=== PATIENT | female | born 1995 | race Caucasian/White ===

== ENCOUNTER 2017-11-02 17:31 | Emergency (ER) | payer BC, OTHER ==
--- NOTE | 2017-11-02 17:51 | EDPHY ---
H & P Stated Complaint: right middle finger lac from broken lightbulb Source: Patient Exam Limitations: No limitations - Personal History LMP (Females 10-55): 22-28 Days Ago Current Tetanus/Diphtheria Vaccine: Unsure Current Tetanus Diphtheria and Acellular Pertussis (TDAP): Unsure - Medical/Surgical History Hx Asthma: No Hx Chronic Respiratory Disease: No Hx Diabetes: No Hx Cardiac Disease: No Hx Renal Disease: No Hx Cirrhosis: No Hx Alcoholism: No Hx HIV/AIDS: No Hx Splenectomy or Spleen Trauma: No Other PMH: none - Family History Significant Family History: No pertinent family hx - Social History Smoking Status: Never smoked Alcohol Use: Sober Drug Use: None Time Seen by Provider: 11/02/17 17:43 HPI/ROS: CHIEF COMPLAINT: Laceration HISTORY OF PRESENT ILLNESS: The patient is a 22-year-old female who comes to the emergency department complaining of a laceration to her right middle finger. She states that she was reaching above the refrigerator and actually cut her finger on a broken light bulb. This happened just prior to arrival. She denies other injuries. She has normal range of motion and sensation. Severity: Moderate Modifying factors: None REVIEW OF SYSTEMS: Constitutional: denies: chills, fever, recent illness, recent injury EENTM: denies: blurred vision, double vision, nose congestion Respiratory: denies: cough, shortness of breath Cardiac: denies: chest pain, irregular heart rate, lightheadedness, palpitations Gastrointestinal/Abdominal: denies: abdominal pain, diarrhea, nausea, vomiting, blood streaked stools Genitourinary: denies: dysuria, frequency, hematuria, pain Musculoskeletal: denies: joint pain, muscle pain Skin: See HPI Neurological: denies: headache, numbness, paresthesia, tingling, dizziness, weakness Hematologic/Lymphatic: denies: blood clots, easy bleeding, easy bruising Immunologic/allergic: denies: HIV/AIDS, transplant 10 systems reviewed and negative except as noted EXAM: GENERAL: Well-appearing, well-nourished and in no acute distress. HEAD: Atraumatic, normocephalic. EYES: Pupils equal round and reactive to light, extraocular movements intact, sclera anicteric, conjunctiva are normal. ENT: TMs normal, nares patent, oropharynx clear without exudates. Moist mucous membranes. NECK: Normal range of motion, supple without lymphadenopathy or JVD. LUNGS: Breath sounds clear to auscultation bilaterally and equal. No wheezes rales or rhonchi. HEART: Regular rate and rhythm without murmurs, rubs or gallops. ABDOMEN: Soft, nontender, normoactive bowel sounds. No guarding, no rebound. No masses appreciated. BACK: No CVA tenderness, no spinal tenderness, step-offs or deformities EXTREMITIES: Normal range of motion, no pitting or edema. No clubbing or cyanosis. NEUROLOGICAL: Cranial nerves II through XII grossly intact. Normal speech, normal gait. 5/5 strength, normal movement in all extremities, normal sensation , normal reflexes PSYCH: Normal mood, normal affect. SKIN: See diagram (Micah Tillman) Constitutional: Initial Vital Signs Temperature (C) 36.7 C 11/02/17 17:33 Heart Rate 76 11/02/17 17:33 Respiratory Rate 18 11/02/17 17:33 Blood Pressure 148/93 H 11/02/17 17:33 O2 Sat (%) 99 11/02/17 17:33 O2 Delivery Mode Room Air Allergies/Adverse Reactions: No Known Allergies Allergy (Unverified 11/02/17 17:32) Home Medications: Medication Instructions Recorded Control 11/02/17 ED Images - Extremities Hands Back Left/Right: 1 - 3 cm linear laceration, about 3 mm state. No visible tendon or nerve injury. No visible joint involvement. Normal range of motion and sensation distally. Medical Decision Making Procedures: I was asked by Dr. Micah Tillman to repair finger laceration. Laceration repair. Verbal consent was obtained from the patient. The 5 cm laceration on the right middle finger was anesthetized by Dr. Tillman using with 1% lidocaine and bicarb The wound was irrigated with saline, draped and explored to its base with a gloved finger. There were no deep structures involved. No tendon injury was identified. The wound was repaired with 5 0 Ethilon, 10 sutures. The wound repair was complex. The procedure was performed by myself. (Lisbet Nobles) ED Course/Re-evaluation: Patient tolerated the repair well. She has normal function and her finger. Discussed suture care and follow-up. (Micah Tillman) Differential Diagnosis: Partial list of the Differential diagnosis considered include but were not limited to; skin laceration, tendon injury, nerve injury and although unlikely based on the history and physical exam, I also considered open joint, fracture, non accidental trauma. I discussed these differential diagnoses and the plan with the patient as well as the usual and expected course. The patient understands that the diagnosis is provisional and that in medicine we are not always correct and that further workup is often warranted. Usual and customary warnings were given. All of the patient's questions were answered. The patient was instructed to return to the emergency department should the symptoms at all worsen or return, otherwise to followup with the physician as we discussed. (Micah Tillman) - Data Points Medications Given: Discontinued Medications Ibuprofen (Motrin) 600 mg PO EDNOW ONE Stop: 11/02/17 18:42 Last Admin: 11/02/17 18:44 Dose: 600 mg Departure - Departure Disposition: Home, Routine, Self-Care Clinical Impression: Finger laceration Qualifiers: Encounter type: initial encounter Finger: middle finger Damage to nail status: without damage Foreign body presence: without foreign body Laterality: right Qualified Code(s): S61.212A - Laceration without foreign body of right middle finger without damage to nail, initial encounter Condition: Good Instructions: Care For Your Stitches (ED), Laceration (ED), Acute Wounds (ED) Additional Instructions: Wound Care Follow-Up: Removal of sutures in 10 days. Suture removal is complimentary in uncomplicated cases. Infection or abnormal findings would require reevaluation by the MD. In that case, you may be billed. Keep wound dry, clean and protected. Return if you notice any signs or symptoms of infection such as redness, swelling, increased pain, fever, purulent drainage. Ibuprofen 600 mg every 8 hr as needed for pain. Referrals: ROSANA Cruz,. [Clinic] - As per Instructions
[2017-11-02] MEDS ORDERED: IBUPROFEN 600 MG TAB PO ONE ×2 (18:41→18:42)
[2017-11-12 14:14] VITALS: BP 122/92
== END 2017-11-02 18:46 | disposition home or self-care (01) ==
PROC: 0HQFXZZ Repair Right Hand Skin, External Approach (ICD-10-PCS; principal; 2017-11-02)
DX: S61.212A Laceration without foreign body of right middle finger without damage to nail, initial encounter (principal); W25.XXXA Contact with sharp glass, initial encounter; Y92.9 Unspecified place or not applicable

== ENCOUNTER 2018-04-03 20:25 | Emergency (ER) | payer OTHER ==
[2018-04-03 20:33] VITALS: BP 136/90
[2018-04-03] MEDS ORDERED: ONDANSETRON DISINTEGRATING 4 MG TAB PO ONE (20:46)
--- NOTE | 2018-04-03 20:48 | EDPHY ---
H & P Stated Complaint: GONZALES,FATIGUE,DIZZY/SNOWBOARDING HIT HEAD +LOC Time Seen by Provider: 04/03/18 20:42 HPI/ROS: CHIEF COMPLAINT: Concussion HISTORY OF PRESENT ILLNESS: Patient is a 22-year-old female who comes to the emergency department with her boyfriend complaining of concussion symptoms. She was snowboarding at 230 this afternoon when she fell backwards and hit the back of her head. She was wearing a helmet. She does not think she lost consciousness but does not remember the event or just prior or just afterwards. Boyfriend states that he was ahead of her and she came skiing down the hill with hardly any delay that he appreciated. She has had a mild headache and nausea ever since. No vomiting. No seizure-like activity. She has been asking repetitive questions. She feels slightly confused. No neck pain. Denies other injuries. She is able to ambulate without difficulty. Severity: Moderate Modifying factors: None REVIEW OF SYSTEMS: Constitutional: denies: chills, fever, recent illness, recent injury EENTM: denies: blurred vision, double vision, nose congestion Respiratory: denies: cough, shortness of breath Cardiac: denies: chest pain, irregular heart rate, lightheadedness, palpitations Gastrointestinal/Abdominal: denies: abdominal pain, diarrhea, nausea, vomiting, blood streaked stools Genitourinary: denies: dysuria, frequency, hematuria, pain Musculoskeletal: denies: joint pain, muscle pain Skin: denies: lesions, rash, jaundice, bruising Neurological: See HPI denies: numbness, paresthesia, tingling, dizziness, weakness Hematologic/Lymphatic: denies: blood clots, easy bleeding, easy bruising Immunologic/allergic: denies: HIV/AIDS, transplant 10 systems reviewed and negative except as noted EXAM: GENERAL: Well-appearing, well-nourished and in no acute distress. HEAD: Atraumatic, normocephalic. EYES: Mild photophobia, Pupils equal round and reactive to light, extraocular movements intact, sclera anicteric, conjunctiva are normal. No nystagmus. ENT: TMs normal, nares patent, oropharynx clear without exudates. Moist mucous membranes. NECK: Normal range of motion, supple without lymphadenopathy or JVD. LUNGS: Breath sounds clear to auscultation bilaterally and equal. No wheezes rales or rhonchi. HEART: Regular rate and rhythm without murmurs, rubs or gallops. ABDOMEN: Soft, nontender, normoactive bowel sounds. No guarding, no rebound. No masses appreciated. BACK: No CVA tenderness, no spinal tenderness, step-offs or deformities EXTREMITIES: Normal range of motion, no pitting or edema. No clubbing or cyanosis. NEUROLOGICAL: Cranial nerves II through XII grossly intact. Normal speech, normal gait. 5/5 strength, normal movement in all extremities, normal sensation , normal reflexes PSYCH: Normal mood, normal affect. SKIN: Warm, dry, normal turgor, no visible rashes or lesions. Source: Patient Exam Limitations: No limitations - Personal History LMP (Females 10-55): IUD In Place Current Tetanus Diphtheria and Acellular Pertussis (TDAP): Yes - Medical/Surgical History Hx Asthma: No Hx Chronic Respiratory Disease: No Hx Diabetes: No Hx Cardiac Disease: No Hx Renal Disease: No Hx Cirrhosis: No Hx Alcoholism: No Hx HIV/AIDS: No Hx Splenectomy or Spleen Trauma: No Other PMH: IUD - Family History Significant Family History: No pertinent family hx - Social History Smoking Status: Current some day smoker Alcohol Use: Sober Constitutional: Initial Vital Signs Temperature (C) 36.9 C 04/03/18 20:29 Heart Rate 88 04/03/18 20:29 Respiratory Rate 16 04/03/18 20:29 Blood Pressure 136/90 H 04/03/18 20:29 O2 Sat (%) 97 04/03/18 20:29 O2 Delivery Mode Room Air Allergies/Adverse Reactions: avocado Allergy (Verified 04/03/18 20:28) Home Medications: Medication Instructions Recorded Control 11/02/17 Ondansetron Odt [Zofran Odt 4 mg 4 mg PO Q4 PRN #20 tab 04/03/18 (RX)] Medical Decision Making - Diagnostics Imaging Results: Imaging Impressions Head CT 04/03/18 20:46 Impression: Normal. No acute fracture or evidence of acute intracranial injury. Findings discussed with emergency department physician, Micah Tillman MD on April 03, 2018 at 9:08 p.m. Imaging: Discussed imaging studies w/ bingo caller Radiologist ED Course/Re-evaluation: Discussed CT results. Patient is feeling better after Zofran. Discussed concussion protocol and return to activity. She and her boyfriend understand and agree and feel safe going home. Discussed indications for returning. Differential Diagnosis: Partial list of the Differential diagnosis considered include but were not limited to; concussion, and although unlikely based on the history and physical exam, I also considered intracranial hemorrhage, fracture, neck injury. I discussed these differential diagnoses and the plan with the patient as well as the usual and expected course. The patient understands that the diagnosis is provisional and that in medicine we are not always correct and that further workup is often warranted. Usual and customary warnings were given. All of the patient's questions were answered. The patient was instructed to return to the emergency department should the symptoms at all worsen or return, otherwise to followup with the physician as we discussed. - Data Points Medications Given: Discontinued Medications Ondansetron HCl (Zofran Odt) 4 mg PO EDNOW ONE Stop: 04/03/18 20:47 Last Admin: 04/03/18 20:55 Dose: 4 mg Departure - Departure Disposition: Home, Routine, Self-Care Clinical Impression: Concussion Qualifiers: Encounter type: initial encounter Loss of consciousness presence/duration: with LOC of unspecified duration Qualified Code(s): S06.0X9A - Concussion with loss of consciousness of unspecified duration, initial encounter Condition: Fair Instructions: Ondansetron (By mouth), Concussion (ED) Referrals: NONE *PRIMARY CARE P,. [Primary Care Provider] - As per Instructions Sosa Mcgarry MD [Medical Doctor] - 5-7 days, if not improved Prescriptions: Ondansetron Odt [Zofran Odt 4 mg (RX)] 4 mg PO Q4 PRN #20 tab PRN Reason: Nausea & Vomiting
[2018-04-03] MEDS ORDERED: ONDANSETRON 4MG PREPACK#2 BTL TAKEHOME ONE (21:13)
== END 2018-04-03 21:25 | disposition home or self-care (01) ==
DX: S06.0X9A Concussion with loss of consciousness of unspecified duration, initial encounter (principal); V00.311A Fall from snowboard, initial encounter; Y93.23 Activity, snow (alpine) (downhill) skiing, snowboarding, sledding, tobogganing and snow tubing; Y92.838 Other recreation area as the place of occurrence of the external cause; R40.2412 Glasgow coma scale score 13-15, at arrival to emergency department